=== PATIENT | male | born 1935 | race Caucasian/White ===

== ENCOUNTER 2018-12-16 13:29 | Outpatient (CLI) | payer MEDICARE | END 2018-12-16 13:30 | disposition home or self-care (01) | LOC: CTENTCT 13:29 | PROVIDERS: ATTEND Specialist | DX: R09.81 Nasal congestion (principal) | CPT/HCPCS: 70486 ==

== ENCOUNTER 2019-12-23 09:03 | Outpatient (CLI) | payer MEDICARE ==
--- NOTE | 2019-12-23 11:03 | CT ---
EXAM: CT ABDOMEN AND PELVIS HISTORY: Malignant neoplasm of sigmoid colon COMPARISON: 05/20/2015 Procedure: Multiple contiguous axial images were obtained and a CT of the abdomen and pelvis with IV contrast. C oronal reformats were performed. FINDINGS: Lower Chest: within normal limits. Vessels: Atherosclerosis and elongation of a normal caliber aorta Heart: Normal heart size. No significant pericardial fluid. Possible epicardial pacing wire Abdomen: Portal vein:Patent Gallbladder: No CT evidence of cholelithiasis or cholecystitis Liver: within normal limits. Pancreas: Mild atrophy. No abnormal enhancement Spleen: within normal limits. Adrenals: within normal limits. Kidneys: Symmetric enhancement. No obstructive uropathy. Exophytic cyst emanating from the right zoila l cortex, measuring 3.1 cm Peritoneum: No ascites or free air, no fluid collection. Bowel: Normal caliber small bowel loops. Ileocecal junction is appearance. Normal caliber appendix. S cattered fecal material throughout the colon. Occasional diverticulum. No diverticulitis. There is long segment bowel wall thickening involving the distal sigmoid colon and rectum. No evidence of sloan cent lymphadenopathy. Mesentery and Retroperitoneum: No enlarged mesenteric or retroperitoneal lymph nodes. Abdominal Wall: within normal limits. Pelvis: Reproductive Organs: Reproductive organs are unremarkable. Pelvis: No mass, lymphadenopathy, free air or free fluid. Bladder: within normal limits. Bones: within normal limits. IMPRESSION: 1. Long segment bowel wall thickening involving the sigmoid colon. Findings are presumed to be second deysi to reported malignancy. There does not appear to be evidence of adjacent lymph node involvement/lymphadenopathy. 2. No evidence of metastases within the liver. 3. Right renal cyst.
== END 2019-12-23 09:04 | disposition home or self-care (01) ==
LOC: SCSCT 09:03
PROVIDERS: ATTEND Internal Medicine Hematology & Oncology
DX: C18.7 Malignant neoplasm of sigmoid colon (principal); K63.89 Other specified diseases of intestine; N28.1 Cyst of kidney, acquired
CPT/HCPCS: 74177; 82565

== ENCOUNTER 2020-10-30 15:34 | Outpatient (CLI) | payer MEDICARE ==
[2020-10-30 17:35] LABS: Hemoglobin 15.4 g/dL (13.5-17.5); Mean Corpuscular HGB CONC 34.5 g/dL (32.0-36.0); Mean Corpuscular Hemoglobin 30.4 pg (27.0-33.0); Mean Corpuscular Volume 88.3 fl (81.2-95.1); Mean Platelet Volume 11.8 fl (7.4-10.4); Platelet Count 182 10x3/uL (150-450); RBC Distribution Width 14.9 % (11.5-14.5); Red Blood Cell (RBC) Count 5.06 10x6/uL (4.32-5.72); White Blood Cell (WBC) Count 8.6 10x3/uL (3.5-10.5)
[2020-10-30 17:45] LABS: Anion Gap 17 mmol/L (10-20); BUN (Urea Nitrogen) 39 mg/dL (8.4-25.7); Calc. Creatinine Clearance 0 mL/min (70-130); Calcium 9.1 mg/dL (7.8-10.44); Carbon Dioxide 22 mmol/L (23-31); Chloride 101 mmol/L (98-107); Glucose 426 mg/dL (83-110); Potassium 4.6 mmol/L (3.5-5.1); Sodium 135 mmol/L (136-145)
[2020-10-31 01:19] LABS: SARS-CoV-2 PCR by NAA Not Detected (NotDetected)
== END 2020-10-30 15:35 | disposition home or self-care (01) ==
LOC: LABBT 15:34
PROVIDERS: ATTEND Specialist
DX: Z01.812 Encounter for preprocedural laboratory examination (principal); Z20.822 Contact with and (suspected) exposure to COVID-19; J32.0 Chronic maxillary sinusitis
CPT/HCPCS: 80048; 85027; U0003; U0005; 87635

== ENCOUNTER 2020-11-02 08:27 | Day surgery (SDC) | payer MEDICARE ==
[2020-11-01 13:53] VITALS: BMI 36.9
[2020-11-02] MEDS ORDERED: Fentanyl 250 MCG/5 ML VIAL ONE (09:24)
[2020-11-02] MEDS ORDERED: Lidocaine 1% w/Epinephrine 1:100K 20 ML VIAL ONE (10:03)
[2020-11-02] MEDS ORDERED: AFRIN NASAL MIST 15 ML BOT ONE ×2 (10:03→10:25)
[2020-11-02] MEDS ORDERED: EPINEPHrine 1 MG/ML AMP ONE (10:12)
[2020-11-02] MEDS ORDERED: Fentanyl 100 MCG/2 ML VIAL ONE (10:19)
[2020-11-02] MEDS ORDERED: Acetaminophen 500 MG TAB ONE (10:25)
[2020-11-02] MEDS ORDERED: Labetalol HCl 100 MG/20 ML VIAL ONE (10:34)
[2020-11-02] MEDS ORDERED: Ondansetron PF 4 MG/2 ML Vial ONE (10:34)
[2020-11-02] MEDS ORDERED: Lidocaine 1% PF 5 ML VIAL ONE (10:34)
[2020-11-02] MEDS ORDERED: PROPOFOL 200 MG/20 ML VIAL ONE (10:34)
[2020-11-02] MEDS ORDERED: Rocuronium Bromide 10 MG/ML (10ML VIAL) ONE (10:34)
[2020-11-02] MEDS ORDERED: Glycopyrrolate 0.2 MG/ML 5 ML SYRINGE ONE (10:34)
[2020-11-02] MEDS ORDERED: SUGAMMADEX SODIUM 200 MG/2 ML VIAL ONE (11:05)
== END 2020-11-02 13:45 | disposition home or self-care (01) ==
LOC: SDC 08:27
PROVIDERS: ATTEND Specialist
PROC: 099R8ZZ Drainage of Left Maxillary Sinus, Via Natural or Artificial Opening Endoscopic (ICD-10-PCS; principal; 2020-11-02)
PROC: 099Q8ZZ Drainage of Right Maxillary Sinus, Via Natural or Artificial Opening Endoscopic (ICD-10-PCS; 2020-11-02)
PROC: 09BT8ZZ Excision of Left Frontal Sinus, Via Natural or Artificial Opening Endoscopic (ICD-10-PCS; 2020-11-02)
PROC: 09BS8ZZ Excision of Right Frontal Sinus, Via Natural or Artificial Opening Endoscopic (ICD-10-PCS; 2020-11-02)
PROC: 09BL8ZZ Excision of Nasal Turbinate, Via Natural or Artificial Opening Endoscopic (ICD-10-PCS; 2020-11-02)
DX: J32.0 Chronic maxillary sinusitis (principal); J34.1 Cyst and mucocele of nose and nasal sinus; J34.3 Hypertrophy of nasal turbinates; E11.9 Type 2 diabetes mellitus without complications; E78.5 Hyperlipidemia, unspecified; I10 Essential (primary) hypertension; I25.10 Atherosclerotic heart disease of native coronary artery without angina pectoris; N40.0 Benign prostatic hyperplasia without lower urinary tract symptoms; Z79.02 Long term (current) use of antithrombotics/antiplatelets; Z79.84 Long term (current) use of oral hypoglycemic drugs; Z79.899 Other long term (current) drug therapy; Z85.038 Personal history of other malignant neoplasm of large intestine; Z96.653 Presence of artificial knee joint, bilateral
CPT/HCPCS: 36416; J0171; J2405; J2704; J3010

== ENCOUNTER 2021-02-27 11:20 | Outpatient (CLI) | payer MEDICARE | END 2021-02-27 11:21 | disposition home or self-care (01) | LOC: PET 11:20 | PROVIDERS: ATTEND Nurse Practitioner Acute Care | DX: R41.89 Other symptoms and signs involving cognitive functions and awareness (principal) | CPT/HCPCS: 78803; A9552 ==